=== PATIENT | male | born 1950 | race Caucasian/White ===

== ENCOUNTER 2020-07-27 16:25 | Emergency (ER) | payer OTHER ==
[~2020-07-27] VITALS: Ht 172.7 cm; Wt 81.2 kg
[~2020-07-27 16:25] MED LIST: AMLO-150 PO; ATEN50TA41 PO; ATOR40TA78 PO; CHOL200052 PO; DIVA125C2 PO; EZET10TA70 PO; IRON PO; LORA-446 PO; LOSA1TAB22 PO; LOSA25TA25 PO; MELA5TAB14 PO; MELO15TA24 PO; NAPR220T77 PO; RISP2TAB80 PO; THIA100T67 PO; amlodipine PO; eye vitamins; vitamin D
--- NOTE | 2020-07-27 17:00 | NUR ---
PT BROUGHT TO ROOM FROM TRIAGE. PT FELL DOWN STAIRS EARLIER TODAY AND HIT RIGHT FOREHEAD. PT HAD LACERATION AND HEMATOMA TO FOREHEAD AND WENT TO URGENT CARE FOR EVALUATION. URGENT CARE SUTURED LACERATION, BUT REFERRED HIM TO THE ER BECAUSE OF RECENT RIGHT SIDED HEAD BLEED. PER PT'S , PT WAS RECENTLY HOSPITALIZED AFTER GLF FOR RIGHT SIDED INTRAPARENCHYMAL HEMORRHAGE. PT DENIES ANY WEAKNESS, BLURRY VISION OR NUMBNESS/TINGLING. SPEECH CLEAR.
--- NOTE | 2020-07-27 17:04 | NUR ---
Padmini greenberg in [facility] - 07/27/20 at 1707 by [email or web address] DISCHARGE INSTRUCTIONS REVIEWED.
--- NOTE | 2020-07-27 17:50 | NUR ---
X RAY AT BEDSIDE
--- NOTE | 2020-07-27 18:18 | NUR ---
PT TO CT
--- NOTE | 2020-07-27 18:49 | NUR ---
REPORT GIVEN TO JUICE SEGUNDO
[2020-07-27] MEDS ORDERED: NEOSPORIN OINT. PKT 1 PACKET ONE (19:11)
[2020-07-27] MEDS ORDERED: OXYcodone/APAP 7.5/325MG TABLET PO ONE (21:00)
[2020-07-27] MEDS ORDERED: OXYcodone/APAP 7.5/325MG TABLET ONE (21:13)
[2020-07-27 21:15] VITALS: BP 167/98
== END 2020-07-27 21:30 | disposition home or self-care (01) ==
LOC: ED 21:20
DX: S62.316A Displaced fracture of base of fifth metacarpal bone, right hand, initial encounter for closed fracture (principal); S02.40CA Maxillary fracture, right side, initial encounter for closed fracture; S09.90XA Unspecified injury of head, initial encounter; M54.2 Cervicalgia; I10 Essential (primary) hypertension; W10.9XXA Fall (on) (from) unspecified stairs and steps, initial encounter; Y93.89 Activity, other specified; Y92.009 Unspecified place in unspecified non-institutional (private) residence as the place of occurrence of the external cause; Y99.8 Other external cause status
CPT/HCPCS: 29125; 70450; 70486; 72125; 99285